=== PATIENT | female | born 1940 | race Caucasian/White ===

== ENCOUNTER 2018-10-01 10:42 | Inpatient (IN) | payer MEDICARE, MEDICAID ==
[~2018-10-01] VITALS: Ht 157.5 cm; Wt 59.4 kg
[~2018-10-01 10:42] MED LIST: AMLODIPINE PO; ASPI-1159 PO; LOSA1TAB3 PO
[2018-10-01] MEDS ORDERED: ONDANSETRON HCL 4MG/2ML INJ IV STA (11:24)
[2018-10-01] MEDS ORDERED: KETOROLAC 30MG/ML VIAL IV STA (11:24)
[2018-10-01 11:46] LABS: CHLORIDE 108 mEq/L (98-107)
[2018-10-01 11:48] LABS: INR 1.2
[2018-10-01 11:58] LABS: BASOPHILS % 0.4 % (0.0-2.0); HEMATOCRIT. 39.4 % (36.0-48.0); LYMPHOCYTES % 26.7 % (20.0-50.0); MEAN CORPUSCULAR HEMOGLOBIN 31.2 pg (28.0-32.0); MEAN CORPUSCULAR VOLUME 94.5 fL (81.0-99.0); MEAN PLATELET VOLUME 7.7 fl (7.4-10.4); MONOCYTES % 6.5 % (2.0-8.0); NEUTROPHILS % 65.4 % (40.0-76.0); PLATELET 185 x1000/uL (130-400); RED BLOOD CELL COUNT 4.17 mill/uL (4.2-5.4); RED CELL DISTRIBUTION WIDTH 14.2 % (11.6-14.6)
[2018-10-01] MEDS ORDERED: ENOXAPARIN 60MG/0.6ML SYR SUBCUT ONE (13:00)
[2018-10-01] MEDS ORDERED: DIPHENHYDRAMINE 50MG/ML VIAL IV PRN (14:30)
[2018-10-01] MEDS ORDERED: IPRATROPIUM/ALBUTEROL 0.5-3(2.5)MG/3ML NEB INH PRN (14:30)
[2018-10-01] MEDS ORDERED: MAGNESIUM/ALUMINUM HYDROXIDE/SIMETHICONE 30ML UDC PO PRN (14:30)
[2018-10-01] MEDS ORDERED: HYDROCODONE/ACETAMINOPHEN 5/325MG TABLET PO PRN (14:30)
[2018-10-01] MEDS ORDERED: ACETAMINOPHEN 325MG TABLET PO PRN (14:30)
[2018-10-01] MEDS ORDERED: CLONIDINE 0.1MG TABLET PO PRN (14:30)
[2018-10-01] MEDS ORDERED: LORAZEPAM 0.5MG TABLET PO PRN (14:30)
[2018-10-01] MEDS ORDERED: ACETAMINOPHEN 650MG SUPP PR PRN (14:30)
[2018-10-01] MEDS ORDERED: NA PHOS,M-B/NA PHOS,DI-BA ENEMA 118ML PR PRN (14:30)
[2018-10-01] MEDS ORDERED: DOCUSATE SODIUM 100MG CAPSULE PO PRN (14:30)
[2018-10-01] MEDS ORDERED: ONDANSETRON HCL 4MG/2ML INJ IV PRN (14:30)
[2018-10-01] MEDS ORDERED: GUAIFENESIN 200MG/10ML SUGAR FREE UDC PO PRN (14:30)
[2018-10-01 16:00] VITALS: BP 155/61
[2018-10-01] MEDS: DOCUSATE SODIUM 100MG CAPSULE PO SCH (16:36)
[2018-10-01] MEDS: ASPIRIN 81MG TABLET PO SCH (16:36)
[2018-10-01] MEDS: AMLODIPINE 5MG TABLET PO SCH (16:36)
[2018-10-01] MEDS ORDERED: CLON-457 PO (17:12)
[2018-10-01] MEDS ORDERED: METH500T22 MT (17:12)
[2018-10-01] MEDS ORDERED: IOHEXOL-350 100 ML BOTTLE ONE (19:00)
[2018-10-01 20:58] LABS: CREATINE KINASE MB FRACTION 1.8 ng/mL (0.5-3.6)
[2018-10-01 23:57] VITALS: BP 134/50
[2018-10-02] MEDS: ENOXAPARIN 60MG/0.6ML SYR SUBCUT SCH ×2 (01:44→12:09)
[2018-10-02 04:00] VITALS: BP 127/52
[2018-10-02 08:00] VITALS: BP 171/69
[2018-10-02 08:14] LABS: BASOPHILS % 0.7 % (0.0-2.0); EOSINOPHILS % 1.4 % (0.0-5.0); HEMATOCRIT. 38.8 % (36.0-48.0); HEMOGLOBIN. 12.7 g/dL (12.0-16.0); LYMPHOCYTES % 40.5 % (20.0-50.0); MEAN CORPUSCULAR VOLUME 94.5 fL (81.0-99.0); MONOCYTES % 7.9 % (2.0-8.0); NEUTROPHILS % 49.5 % (40.0-76.0); PLATELET 177 x1000/uL (130-400); RED BLOOD CELL COUNT 4.11 mill/uL (4.2-5.4); RED CELL DISTRIBUTION WIDTH 14.2 % (11.6-14.6)
[2018-10-02] MEDS: DOCUSATE SODIUM 100MG CAPSULE PO SCH (08:24)
[2018-10-02] MEDS: AMLODIPINE 5MG TABLET PO SCH (08:25)
[2018-10-02] MEDS: ASPIRIN 81MG TABLET PO SCH (08:25)
[2018-10-02 08:29] LABS: CHLORIDE 107 mEq/L (98-107)
[2018-10-02 08:38] LABS: LDL CHOLESTEROL 141 mg/dL (5-100)
[2018-10-02 08:39] LABS: HDL CHOLESTEROL 68 mg/dL (40-59); T4 FREE 1.05 ng/dL (0.76-1.46)
[2018-10-02 12:00] VITALS: BP 120/66
[2018-10-02 16:00] VITALS: BP 151/65
[2018-10-02] MEDS ORDERED: ATORVASTATIN CALCIUM 20MG TABLET PO SCH (21:00)
== END 2018-10-02 18:00 | disposition home or self-care (01) | DRG 301 ==
LOC: EDBEDREQ 11:41 → ER 13:17 → 7WST 13:30 → ENRESERV 13:48 → SUPCPDRO 14:20
PROVIDERS: ADMIT Internal Medicine; ATTEND Internal Medicine
DX: I82.412 Acute embolism and thrombosis of left femoral vein (principal); I10 Essential (primary) hypertension; K59.09 Other constipation; E86.0 Dehydration; R73.9 Hyperglycemia, unspecified; Z88.2 Allergy status to sulfonamides; Z79.899 Other long term (current) drug therapy; Z79.82 Long term (current) use of aspirin
CPT/HCPCS: 36415; 71045; 71275; 74018; 80061; 82550; 82553; 83036; 83605; 83880; 84439; 84443; 84484; 93005; 93306; 93970; 96372; 96374; 96375; 99285; J1650; J1885; J2405; Q9967

== ENCOUNTER 2019-07-10 10:21 | Inpatient (IN) | payer MEDICARE, MEDICAID ==
[~2019-07-10] VITALS: Ht 315 cm; Wt 56.2 kg
[~2019-07-10 10:21] MED LIST changes: -AMLODIPINE PO; -ASPI-1159 PO; +CLON-457 PO; -LOSA1TAB3 PO; +METH500T22 MT
[2019-07-10 11:36] LABS: BASOPHILS % 1.3 % (0.0-2.0); EOSINOPHILS % 0.7 % (0.0-5.0); HEMATOCRIT. 39.7 % (36.0-48.0); LYMPHOCYTES % 31.4 % (20.0-50.0); MEAN CORPUSCULAR HEMOGLOBIN 30.9 pg (28.0-32.0); MEAN PLATELET VOLUME 8.2 fl (7.4-10.4); MONOCYTES % 9.7 % (2.0-8.0); NEUTROPHILS % 56.9 % (40.0-76.0); PLATELET 198 x1000/uL (130-400); RED BLOOD CELL COUNT 4.23 mill/uL (4.2-5.4); RED CELL DISTRIBUTION WIDTH 14.3 % (11.6-14.6)
[2019-07-10 11:41] LABS: CHLORIDE 109 mEq/L (98-107)
[2019-07-10] MEDS ORDERED: ENALAPRIL 2.5MG/2ML VIAL 2ML IV ONE (11:45)
[2019-07-10 12:00] VITALS: BP 151/67
[2019-07-10] MEDS ORDERED: ENALAPRIL 1.25MG/ML VIAL 1ML IV ONE (12:00)
[2019-07-10] MEDS ORDERED: FUROSEMIDE 40MG/4ML VIAL IVP ONE (12:15)
[2019-07-10 15:33] VITALS: BP 151/67
[2019-07-10] MEDS ORDERED: LISI-604 MT (15:42)
[2019-07-10] MEDS ORDERED: METO-539 MT (15:43)
[2019-07-10] MEDS ORDERED: IPRATROPIUM/ALBUTEROL 0.5-3(2.5)MG/3ML NEB HHN PRN (16:15)
[2019-07-10] MEDS ORDERED: HYDROCODONE/ACETAMINOPHEN 5/325MG TABLET PO PRN (16:15)
[2019-07-10] MEDS ORDERED: ONDANSETRON HCL 4MG/2ML INJ IV PRN (16:15)
[2019-07-10 16:46] VITALS: BP 164/58
[2019-07-10] MEDS: HYDROCHLOROTHIAZIDE 25MG TABLET PO SCH (16:52)
[2019-07-10] MEDS: ENOXAPARIN 40MG/0.4ML SYR SUBCUT SCH (16:53)
[2019-07-10 20:26] VITALS: BP 182/56
[2019-07-10] MEDS: LISINOPRIL 20MG TABLET PO SCH ×2 (21:00→21:40)
[2019-07-10] MEDS: HYDRALAZINE HCL 50MG TABLET PO SCH (21:40)
[2019-07-11] VITALS (7 sets, daily range): BP systolic 134–196; BP diastolic 49–89
[2019-07-11 00:12] LABS: CHLORIDE 104 mEq/L (98-107)
[2019-07-11 00:21] LABS: CREATINE KINASE 103 IU/L (26-192)
[2019-07-11 00:23] LABS: CREATINE KINASE MB FRACTION 1.7 ng/mL (0.5-3.6)
[2019-07-11] MEDS ORDERED: DEXTROSE 50% WATER 50ML SYRINGE IV PRN (02:00)
[2019-07-11] MEDS: CLONIDINE 0.1MG TABLET PO PRN ×2 (06:08→13:05)
[2019-07-11] MEDS: HYDRALAZINE HCL 50MG TABLET PO SCH ×3 (06:08→21:09)
[2019-07-11] MEDS: BLOOD SUGAR DIAGNOSTIC STRIP TEST SCH ×4 (06:09→21:00)
[2019-07-11] MEDS: INSULIN LISPRO 100 UNITS/ML SUBCUT SCH ×4 (06:10→21:00)
[2019-07-11 07:03] LABS: BASOPHILS % 0.7 % (0.0-2.0); EOSINOPHILS % 2.2 % (0.0-5.0); MEAN CORPUSCULAR HEMOGLOBIN 31.2 pg (28.0-32.0); MEAN CORPUSCULAR VOLUME 93.5 fL (81.0-99.0); MEAN PLATELET VOLUME 8.2 fl (7.4-10.4); MONOCYTES % 7.9 % (2.0-8.0); NEUTROPHILS % 37.2 % (40.0-76.0); PLATELET 206 x1000/uL (130-400); RED BLOOD CELL COUNT 4.17 mill/uL (4.2-5.4); RED CELL DISTRIBUTION WIDTH 14.2 % (11.6-14.6)
[2019-07-11] MEDS: HYDROCHLOROTHIAZIDE 25MG TABLET PO SCH ×2 (08:56→13:04)
[2019-07-11 09:00] LABS: T4 FREE 1.37 ng/dL (0.76-1.46)
[2019-07-11] MEDS: LISINOPRIL 20MG TABLET PO SCH ×2 (09:04→21:09)
[2019-07-11] MEDS ORDERED: MORPHINE SULFATE 2 MG/ML CPJ (NOT FOR IM USE) IV PRN (16:45)
[2019-07-11] MEDS ORDERED: BISACODYL 10MG SUPP PR PRN (16:45)
[2019-07-11] MEDS ORDERED: DIPHENHYDRAMINE 50MG/ML VIAL IV PRN (16:45)
[2019-07-11] MEDS ORDERED: LORAZEPAM 2MG/ML CPJ IV PRN (16:45)
[2019-07-11] MEDS: ENOXAPARIN 40MG/0.4ML SYR SUBCUT SCH (16:53)
[2019-07-11] MEDS ORDERED: NITROGLYCERIN 0.4MG TABLET SL SL PRN (17:00)
[2019-07-11] MEDS: METFORMIN HCL 500MG TABLET PO SCH (18:10)
[2019-07-11] MEDS: ACETAMINOPHEN 325MG TABLET PO PRN (19:52)
[2019-07-12] VITALS: BP 142/56
[2019-07-12 04:00] VITALS: BP 147/49
[2019-07-12] MEDS: BLOOD SUGAR DIAGNOSTIC STRIP TEST SCH ×2 (05:55→12:40)
[2019-07-12] MEDS: HYDRALAZINE HCL 50MG TABLET PO SCH ×2 (06:02→14:58)
[2019-07-12] MEDS: ACETAMINOPHEN 325MG TABLET PO PRN (06:49)
[2019-07-12 06:53] LABS: HEMATOCRIT 43.3 % (36.0-48.0); HEMOGLOBIN 14.5 g/dL (12.0-16.0); MEAN CORPUSCULAR HEMOGLOBIN 31.3 pg (28.0-32.0); MEAN CORPUSCULAR VOLUME 93.2 fL (81.0-99.0); PLATELET 226 x1000/uL (130-400); RED BLOOD CELL COUNT 4.65 mill/uL (4.2-5.4); RED CELL DISTRIBUTION WIDTH 14.1 % (11.6-14.6)
[2019-07-12 06:59] LABS: INR 1.1; PROTHROMBIN TIME 11.4 sec (9.6-11.0)
[2019-07-12 07:58] LABS: CHLORIDE 103 mEq/L (98-107)
[2019-07-12 08:00] VITALS: BP 166/67
[2019-07-12] MEDS: METFORMIN HCL 500MG TABLET PO SCH (08:05)
[2019-07-12] MEDS: INSULIN LISPRO 100 UNITS/ML SUBCUT SCH ×2 (08:06→13:10)
[2019-07-12] MEDS: LISINOPRIL 20MG TABLET PO SCH (09:01)
[2019-07-12] MEDS: HYDROCHLOROTHIAZIDE 25MG TABLET PO SCH (09:01)
[2019-07-12] MEDS: HYDRALAZINE 20MG/ML VIAL IV PRN ×2 (09:07→15:49)
[2019-07-12 12:00] VITALS: BP 169/104
[2019-07-12] MEDS ORDERED: MECL-109 MT (14:01)
[2019-07-12] MEDS ORDERED: HYDR25TA MT (14:01)
[2019-07-12] MEDS ORDERED: HYDR100T26 MT (14:01)
[2019-07-12 16:00] VITALS: BP 167/78
[2019-07-12] MEDS: ENOXAPARIN 40MG/0.4ML SYR SUBCUT SCH (16:00)
[2019-07-12 17:00] VITALS: BP 167/78
== END 2019-07-12 17:36 | disposition home or self-care (01) | DRG 73 ==
LOC: ER 10:21 → 7WST 11:50 → ENRESERV 12:16
PROVIDERS: ADMIT Internal Medicine; ATTEND Internal Medicine
DX: G90.8 Other disorders of autonomic nervous system (principal); I50.33 Acute on chronic diastolic (congestive) heart failure; I16.0 Hypertensive urgency; I11.0 Hypertensive heart disease with heart failure; D72.819 Decreased white blood cell count, unspecified; E11.9 Type 2 diabetes mellitus without complications; R00.1 Bradycardia, unspecified; T44.7X5A Adverse effect of beta-adrenoreceptor antagonists, initial encounter; T46.5X5A Adverse effect of other antihypertensive drugs, initial encounter; R74.0 Nonspecific elevation of levels of transaminase and lactic acid dehydrogenase [LDH]; E78.5 Hyperlipidemia, unspecified; Z88.5 Allergy status to narcotic agent; Z86.718 Personal history of other venous thrombosis and embolism; Z79.899 Other long term (current) drug therapy; Z79.84 Long term (current) use of oral hypoglycemic drugs; Y92.89 Other specified places as the place of occurrence of the external cause
CPT/HCPCS: 36415; 71045; 76705; 80048; 80061; 80076; 82550; 82553; 83036; 83880; 84439; 84443; 84484; 85027; 93005; 93306; 93970; 99285; J0360; J1650; J1940; J3490

== ENCOUNTER 2020-07-30 15:33 | Inpatient (IN) | payer MEDICARE, MEDICAID ==
[~2020-07-30] VITALS: Ht 160 cm; Wt 59.0 kg
[~2020-07-30 15:33] MED LIST changes: -CLON-457 PO; +HYDR100T26 MT; +HYDR25TA MT; +LISI-604 MT; +MECL-159 MT; -METH500T22 MT
[2020-07-30] MEDS ORDERED: LORAZEPAM 1MG TABLET PO ONE (19:00)
[2020-07-30 19:16] LABS: EOSINOPHILS % 1.4 % (0.0-5.0); HEMOGLOBIN. 13.7 g/dL (12.0-16.0); MEAN CORPUSCULAR HEMOGLOBIN 31.3 pg (28.0-32.0); MEAN CORPUSCULAR VOLUME 93.9 fL (81.0-99.0); MEAN PLATELET VOLUME 8.3 fl (7.4-10.4); NEUTROPHILS % 55.6 % (40.0-76.0); PLATELET 180 x1000/uL (130-400); RED BLOOD CELL COUNT 4.37 mill/uL (4.2-5.4); RED CELL DISTRIBUTION WIDTH 13.4 % (11.6-14.6)
[2020-07-30 19:27] LABS: CHLORIDE 103 mEq/L (98-107)
[2020-07-30] MEDS ORDERED: ENOXAPARIN 80MG/0.8ML SYR SUBCUT ONE (20:00)
[2020-07-30] MEDS ORDERED: NITROGLYCERIN 0.4MG TABLET SL SL PRN (21:15)
[2020-07-30] MEDS ORDERED: HYDROCODONE/ACETAMINOPHEN 10/325MG TABLET PO PRN (21:15)
[2020-07-30] MEDS ORDERED: GUAIFENESIN 200MG/10ML SUGAR FREE UDC PO PRN (21:15)
[2020-07-30] MEDS ORDERED: ACETAMINOPHEN 325MG TABLET PO PRN ×2 (21:15)
[2020-07-30] MEDS ORDERED: CLONIDINE 0.1MG TABLET PO PRN (21:15)
[2020-07-30] MEDS ORDERED: IPRATROPIUM/ALBUTEROL 0.5-3(2.5)MG/3ML NEB NEB PRN (21:15)
[2020-07-30] MEDS ORDERED: MAGNESIUM/ALUMINUM HYDROXIDE/SIMETHICONE 30ML UDC PO PRN (21:15)
[2020-07-30] MEDS ORDERED: ONDANSETRON HCL 4MG/2ML INJ IV PRN (21:15)
[2020-07-30] MEDS ORDERED: DOCUSATE SODIUM 100MG CAPSULE PO PRN (21:15)
[2020-07-30] MEDS ORDERED: DEXTROSE 50% WATER 50ML SYRINGE IV PRN (21:15)
[2020-07-30] MEDS ORDERED: ZOLPIDEM TARTRATE 5MG TABLET PO PRN (21:15)
[2020-07-30] MEDS ORDERED: ENOXAPARIN 80MG/0.8ML SYR SUBCUT NR (22:00)
[2020-07-30] MEDS: METOPROLOL TARTRATE 25MG TABLET PO SCH (22:00)
[2020-07-30] MEDS: BLOOD SUGAR DIAGNOSTIC STRIP TEST SCH (22:00)
[2020-07-30] MEDS: INSULIN LISPRO 100 UNITS/ML SUBCUT SCH (22:00)
[2020-07-30] MEDS: FAMOTIDINE 20MG TABLET PO SCH (22:00)
[2020-07-30] MEDS ORDERED: IOHEXOL-350 100 ML BOTTLE ONE (23:09)
[2020-07-31] VITALS (7 sets, daily range): BP systolic 90–149; BP diastolic 51–78
[2020-07-31] MEDS: ASCORBIC ACID 500 MG TABLET PO SCH ×3 (00:46→21:04)
[2020-07-31] MEDS: HYDRALAZINE HCL 50MG TABLET PO SCH ×4 (00:46→22:00)
[2020-07-31] MEDS ORDERED: CLON0.2T MT (01:02)
[2020-07-31] MEDS: BLOOD SUGAR DIAGNOSTIC STRIP TEST SCH ×4 (06:38→21:05)
[2020-07-31 07:14] LABS: INR 1.2; PROTHROMBIN TIME 12.2 sec (9.6-11.0)
[2020-07-31 07:37] LABS: CREATINE KINASE MB FRACTION 2.2 ng/mL (0.5-3.6)
[2020-07-31] MEDS: INSULIN LISPRO 100 UNITS/ML SUBCUT SCH ×4 (07:40→21:00)
[2020-07-31] MEDS: ASPIRIN 81MG EC TABLET PO SCH (09:24)
[2020-07-31] MEDS: ENOXAPARIN 60MG/0.6ML SYR SUBCUT SCH ×2 (09:24→21:05)
[2020-07-31] MEDS: ZINC SULFATE 220 MG ( 50 ) CAPSULE PO SCH (09:24)
[2020-07-31] MEDS: METOPROLOL TARTRATE 25MG TABLET PO SCH ×2 (09:26→20:45)
[2020-07-31 11:57] LABS: CREATINE KINASE MB FRACTION 2.8 ng/mL (0.5-3.6)
[2020-07-31] MEDS: LOSARTAN POTASSIUM 100 MG TABLET PO SCH (13:30)
[2020-07-31] MEDS: FAMOTIDINE 20MG TABLET PO SCH (20:46)
[2020-08-01] VITALS (7 sets, daily range): BP systolic 111–208; BP diastolic 64–84
[2020-08-01] MEDS: HYDRALAZINE HCL 50MG TABLET PO SCH ×4 (06:00→21:24)
[2020-08-01] MEDS: BLOOD SUGAR DIAGNOSTIC STRIP TEST SCH ×4 (07:00→21:00)
[2020-08-01] MEDS: INSULIN LISPRO 100 UNITS/ML SUBCUT SCH ×4 (07:39→21:00)
[2020-08-01] MEDS: ZINC SULFATE 220 MG ( 50 ) CAPSULE PO SCH (08:00)
[2020-08-01] MEDS: ASCORBIC ACID 500 MG TABLET PO SCH ×2 (08:00→21:00)
[2020-08-01] MEDS: LOSARTAN POTASSIUM 100 MG TABLET PO SCH (08:00)
[2020-08-01] MEDS: ASPIRIN 81MG EC TABLET PO SCH (08:00)
[2020-08-01] MEDS: METOPROLOL TARTRATE 25MG TABLET PO SCH ×2 (08:01→21:00)
[2020-08-01] MEDS: ENOXAPARIN 60MG/0.6ML SYR SUBCUT SCH (08:02)
[2020-08-01 11:11] LABS: BASOPHILS % 0.5 % (0.0-2.0); EOSINOPHILS % 1.3 % (0.0-5.0); HEMATOCRIT. 41.4 % (36.0-48.0); HEMOGLOBIN. 13.7 g/dL (12.0-16.0); LYMPHOCYTES % 34.7 % (20.0-50.0); MEAN CORPUSCULAR HEMOGLOBIN 30.8 pg (28.0-32.0); MEAN CORPUSCULAR VOLUME 93.6 fL (81.0-99.0); MEAN PLATELET VOLUME 7.5 fl (7.4-10.4); MONOCYTES % 8.7 % (2.0-8.0); NEUTROPHILS % 54.8 % (40.0-76.0); PLATELET 229 x1000/uL (130-400); RED BLOOD CELL COUNT 4.43 mill/uL (4.2-5.4)
[2020-08-01 11:20] LABS: CHLORIDE 103 mEq/L (98-107)
[2020-08-01 11:28] LABS: CREATINE KINASE MB FRACTION 3.9 ng/mL (0.5-3.6)
[2020-08-01] MEDS ORDERED: APIXABAN 5 MG TABLET PO SCH (17:00)
[2020-08-01] MEDS: FAMOTIDINE 20MG TABLET PO SCH (21:00)
== END 2020-08-01 21:50 | disposition left against medical advice (07) | DRG 282 ==
LOC: ER 15:33 → 8WST 20:50 → SUPCPDRO 21:01 → ENRESERV 22:33
PROVIDERS: ADMIT Internal Medicine; ATTEND Internal Medicine
DX: I82.412 Acute embolism and thrombosis of left femoral vein (principal); I21.4 Non-ST elevation (NSTEMI) myocardial infarction; I82.432 Acute embolism and thrombosis of left popliteal vein; E11.9 Type 2 diabetes mellitus without complications; E78.5 Hyperlipidemia, unspecified; I82.512 Chronic embolism and thrombosis of left femoral vein; Z53.29 Procedure and treatment not carried out because of patient's decision for other reasons; I82.532 Chronic embolism and thrombosis of left popliteal vein; I10 Essential (primary) hypertension; Z79.899 Other long term (current) drug therapy; Z79.4 Long term (current) use of insulin; Z88.2 Allergy status to sulfonamides; Z98.891 History of uterine scar from previous surgery
CPT/HCPCS: 36415; 71045; 71275; 80048; 80053; 80061; 82550; 82553; 82962; 83036; 83880; 84484; 85025; 93005; 93306; 93970; 97162; 99285; J1650; Q9967

== ENCOUNTER 2021-11-15 14:46 | Inpatient (IN) | payer MEDICARE, MEDICAID ==
[~2021-11-15] VITALS: Ht 157.5 cm; Wt 55.3 kg
[~2021-11-15 14:46] MED LIST changes: +CLON0.2T MT; -HYDR100T26 MT; -HYDR25TA MT; -LISI-604 MT
[2021-11-15] MEDS ORDERED: CLONIDINE 0.1MG TABLET PO ONE (16:15)
[2021-11-15 16:20] LABS: CLARITY URINE CLEAR (CLEAR); COLOR URINE YELLOW (YELLOW); KETONES URINE NEGATIVE (NEGATIVE); LEUKOCYTE ESTERASE URINE NEGATIVE (NEGATIVE); NITRITE URINE NEGATIVE (NEGATIVE); OCCULT BLOOD URINE NEGATIVE (NEGATIVE); PH URINE 6.5 (4.5-8.0); PROTEIN URINE TRACE (NEGATIVE); UROBILINOGEN URINE 0.2 E.U./dL (0.2-1.0)
[2021-11-15 16:43] LABS: BASOPHILS % 0.7 % (0.0-2.0); EOSINOPHILS % 0.8 % (0.0-5.0); HEMATOCRIT. 38.3 % (36.0-48.0); HEMOGLOBIN. 12.6 g/dL (12.0-16.0); LYMPHOCYTES % 37.5 % (20.0-50.0); MEAN CORPUSCULAR HEMOGLOBIN 30.2 pg (28.0-32.0); MEAN CORPUSCULAR VOLUME 92.3 fL (81.0-99.0); MEAN PLATELET VOLUME 8.3 fl (7.4-10.4); MONOCYTES % 9.3 % (2.0-8.0); NEUTROPHILS % 51.7 % (40.0-76.0); PLATELET 237 x1000/uL (130-400); RED BLOOD CELL COUNT 4.15 mill/uL (4.2-5.4); RED CELL DISTRIBUTION WIDTH 13.8 % (11.6-14.6)
[2021-11-15 16:44] LABS: CHLORIDE 107 mEq/L (98-107)
[2021-11-16] MEDS ORDERED: HYDRALAZINE 20MG/ML VIAL IV SCH (07:50)
[2021-11-16 09:08] VITALS: BP 145/50
[2021-11-16 09:15] VITALS: BP 179/83
[2021-11-16] MEDS ORDERED: IPRATROPIUM/ALBUTEROL 0.5-3(2.5)MG/3ML NEB HHN PRN (10:45)
[2021-11-16] MEDS ORDERED: NALOXONE HCL 0.4MG/ML VIAL IV PRN (10:45)
[2021-11-16] MEDS ORDERED: ONDANSETRON HCL 4MG/2ML INJ IV PRN (10:45)
[2021-11-16 11:50] VITALS: BP 109/64
[2021-11-16] MEDS ORDERED: AMLODIPINE 5MG TABLET PO NR (12:00)
[2021-11-16] MEDS ORDERED: ENOXAPARIN 30MG/0.3ML SYR SUBCUT SCH (13:00)
[2021-11-16 13:02] LABS: CHLORIDE 103 mEq/L (98-107)
[2021-11-16] MEDS: LISINOPRIL 10MG TABLET PO SCH ×2 (13:28→20:42)
[2021-11-16] MEDS: NITROGLYCERIN OINT 1GM/INCH UDPKT TD SCH ×2 (13:36→20:42)
[2021-11-16 16:01] LABS: CREATINE KINASE MB FRACTION 3.3 ng/mL (0.5-3.6)
[2021-11-16] MEDS: HYDRALAZINE HCL 10MG TABLET PO PRN (16:19)
[2021-11-16 16:20] VITALS: BP 178/72
[2021-11-16 20:14] VITALS: BP 138/77
[2021-11-16] MEDS: ATORVASTATIN CALCIUM 10MG TABLET PO SCH (20:42)
[2021-11-16] MEDS: ACETAMINOPHEN 325MG TABLET PO PRN (20:42)
[2021-11-16] MEDS ORDERED: AMLODIPINE 5MG TABLET PO SCH (21:00)
[2021-11-17 00:03] VITALS: BP 176/71
[2021-11-17 00:04] LABS: CREATINE KINASE MB FRACTION 4.5 ng/mL (0.5-3.6)
[2021-11-17] MEDS: HYDROCODONE/ACETAMINOPHEN 5/325MG TABLET PO PRN ×4 (00:22→21:35)
[2021-11-17] MEDS: ENOXAPARIN 60MG/0.6ML SYR SUBCUT SCH ×2 (00:22→13:53)
[2021-11-17] MEDS: HYDRALAZINE HCL 10MG TABLET PO PRN ×2 (00:22→09:46)
[2021-11-17 04:07] VITALS: BP 159/81
[2021-11-17] MEDS: NITROGLYCERIN OINT 1GM/INCH UDPKT TD SCH ×3 (06:23→21:36)
[2021-11-17 08:00] VITALS: BP 188/61
[2021-11-17] MEDS: LISINOPRIL 10MG TABLET PO SCH (09:46)
[2021-11-17] MEDS: ASPIRIN 81MG EC TABLET PO SCH (09:46)
[2021-11-17] MEDS ORDERED: HYDRALAZINE 20MG/ML VIAL IV PRN (11:15)
[2021-11-17 12:00] VITALS: BP 207/93
[2021-11-17] MEDS: HYDRALAZINE HCL 50MG TABLET PO SCH ×2 (13:51→21:35)
[2021-11-17 13:59] LABS: BASOPHILS % 0.8 % (0.0-2.0); EOSINOPHILS % 0.3 % (0.0-5.0); HEMATOCRIT. 47.8 % (36.0-48.0); LYMPHOCYTES % 41.7 % (20.0-50.0); MEAN CORPUSCULAR HEMOGLOBIN 30.6 pg (28.0-32.0); MEAN CORPUSCULAR VOLUME 91.1 fL (81.0-99.0); MEAN PLATELET VOLUME 8.2 fl (7.4-10.4); MONOCYTES % 6.5 % (2.0-8.0); NEUTROPHILS % 50.7 % (40.0-76.0); PLATELET 305 x1000/uL (130-400); RED BLOOD CELL COUNT 5.25 mill/uL (4.2-5.4); RED CELL DISTRIBUTION WIDTH 13.9 % (11.6-14.6)
[2021-11-17 14:11] LABS: CHLORIDE 103 mEq/L (98-107)
[2021-11-17] MEDS: ACETAMINOPHEN 325MG TABLET PO PRN (15:14)
[2021-11-17 15:32] VITALS: BP 209/87
[2021-11-17 17:06] LABS: T4 FREE 1.28 ng/dL (0.76-1.46)
[2021-11-17 19:04] LABS: *AMPHETAMINES SCREEN URINE NEGATIVE (NEGATIVE); *BARBITURATES SCREEN URINE NEGATIVE (NEGATIVE); *BENZODIAZEPINES SCREEN URINE NEGATIVE (NEGATIVE); *COCAINE SCREEN URINE NEGATIVE (NEGATIVE)
[2021-11-17 19:05] LABS: CANNABINOID URINE SCREEN NEGATIVE (NEGATIVE); OPIATES URINE SCREEN PRESUMTIVE POSITIVE (NEGATIVE); PHENCYCLIDINE URINE SCREEN NEGATIVE (NEGATIVE)
[2021-11-17 20:00] VITALS: BP 174/74
[2021-11-17] MEDS: LISINOPRIL 20MG TABLET PO SCH (21:36)
[2021-11-17] MEDS: ATORVASTATIN CALCIUM 10MG TABLET PO SCH (21:36)
[2021-11-18] VITALS: BP 169/79
[2021-11-18] MEDS: ENOXAPARIN 60MG/0.6ML SYR SUBCUT SCH (00:41)
[2021-11-18 04:00] VITALS: BP 167/87
[2021-11-18] MEDS: NITROGLYCERIN OINT 1GM/INCH UDPKT TD SCH (06:22)
[2021-11-18] MEDS: HYDRALAZINE HCL 50MG TABLET PO SCH (06:22)
[2021-11-18 06:28] LABS: BASOPHILS % 0.4 % (0.0-2.0); HEMOGLOBIN. 14.7 g/dL (12.0-16.0); LYMPHOCYTES % 19.9 % (20.0-50.0); MEAN CORPUSCULAR VOLUME 90.9 fL (81.0-99.0); MEAN PLATELET VOLUME 8.4 fl (7.4-10.4); MONOCYTES % 7.4 % (2.0-8.0); NEUTROPHILS % 72.3 % (40.0-76.0); PLATELET 280 x1000/uL (130-400); RED BLOOD CELL COUNT 4.73 mill/uL (4.2-5.4); RED CELL DISTRIBUTION WIDTH 13.8 % (11.6-14.6)
[2021-11-18 06:42] LABS: CHLORIDE 104 mEq/L (98-107)
[2021-11-18 08:00] VITALS: BP 151/72
[2021-11-18] MEDS: LISINOPRIL 20MG TABLET PO SCH ×2 (10:09→21:53)
[2021-11-18] MEDS: ASPIRIN 81MG EC TABLET PO SCH (10:09)
[2021-11-18] MEDS ORDERED: HYDRALAZINE HCL 50MG TABLET PO SCH (10:15)
[2021-11-18] MEDS: HYDROCODONE/ACETAMINOPHEN 5/325MG TABLET PO PRN (10:18)
[2021-11-18 11:31] LABS: CHLORIDE 102 mEq/L (98-107)
[2021-11-18 12:00] VITALS: BP 166/76
[2021-11-18] MEDS: HYDRALAZINE HCL 100MG TABLET PO SCH ×2 (13:27→21:53)
[2021-11-18] MEDS ORDERED: ATOR10TA MT (13:39)
[2021-11-18] MEDS ORDERED: LISI20TA31 MT (13:39)
[2021-11-18] MEDS ORDERED: HYDR100T26 MT (13:39)
[2021-11-18] MEDS ORDERED: XAR15 MT (13:39)
[2021-11-18] MEDS ORDERED: ISOS20TA57 PO ×2 (13:39)
[2021-11-18 16:00] VITALS: BP 170/88
[2021-11-18] MEDS: RIVAROXABAN 15 MG TABLET PO SCH (17:44)
[2021-11-18] MEDS ORDERED: DILTIAZEM HCL 30MG TABLET PO NR (17:45)
[2021-11-18 20:00] VITALS: BP 169/58
[2021-11-18] MEDS: ATORVASTATIN CALCIUM 10MG TABLET PO SCH (21:53)
[2021-11-18] MEDS: ISOSORBIDE MONONITRATE 60MG TABLET SR 24HR PO SCH (21:53)
[2021-11-19] VITALS (11 sets, daily range): BP systolic 122–157; BP diastolic 42–86
[2021-11-19] MEDS: HYDRALAZINE HCL 100MG TABLET PO SCH (06:29)
[2021-11-19] MEDS: LISINOPRIL 20MG TABLET PO SCH ×2 (08:57→20:52)
[2021-11-19] MEDS: ISOSORBIDE MONONITRATE 60MG TABLET SR 24HR PO SCH (08:57)
[2021-11-19] MEDS ORDERED: DEXTROSE 50% WATER 50ML SYRINGE IV PRN (10:00)
[2021-11-19] MEDS ORDERED: DILTIAZEM HCL 5MG/ML 5ML VIAL IV NR (10:15)
[2021-11-19] MEDS ORDERED: LORAZEPAM 1MG TABLET PO NR (10:30)
[2021-11-19] MEDS ORDERED: LIDOCAINE HCL 1% 10 MG/ML 10ML VIAL ONE (12:40)
[2021-11-19] MEDS ORDERED: LORAZEPAM 2MG/ML CPJ IV PRN (12:45)
[2021-11-19] MEDS: DILTIAZEM HCL 60MG TABLET PO SCH ×2 (12:52→17:33)
[2021-11-19] MEDS: BLOOD SUGAR DIAGNOSTIC STRIP TEST SCH ×3 (12:56→20:52)
[2021-11-19] MEDS: DILTIAZEM HCL 125 MG in DEXT 5% WATER 100 ML IV SCH ×2 (13:02→13:04)
[2021-11-19] MEDS: INSULIN LISPRO 100 UNITS/ML SUBCUT SCH ×3 (13:08→20:58)
[2021-11-19 13:16] LABS: BASOPHILS % 0.5 % (0.0-2.0); EOSINOPHILS % 0.1 % (0.0-5.0); HEMATOCRIT. 40.8 % (36.0-48.0); HEMOGLOBIN. 13.5 g/dL (12.0-16.0); MEAN CORPUSCULAR HEMOGLOBIN 30.1 pg (28.0-32.0); MEAN CORPUSCULAR VOLUME 90.9 fL (81.0-99.0); MEAN PLATELET VOLUME 8.3 fl (7.4-10.4); MONOCYTES % 6.5 % (2.0-8.0); NEUTROPHILS % 72.9 % (40.0-76.0); PLATELET 261 x1000/uL (130-400); RED BLOOD CELL COUNT 4.49 mill/uL (4.2-5.4); RED CELL DISTRIBUTION WIDTH 14.1 % (11.6-14.6)
[2021-11-19 13:25] LABS: CHLORIDE 116 mEq/L (98-107)
[2021-11-19] MEDS ORDERED: POTASSIUM CHLORIDE 20MEQ/PACKET PO NR (14:30)
[2021-11-19] MEDS: RIVAROXABAN 15 MG TABLET PO SCH (17:33)
[2021-11-19 17:52] LABS: INR 1.2
[2021-11-19] MEDS: ATORVASTATIN CALCIUM 10MG TABLET PO SCH (20:51)
[2021-11-20] VITALS (19 sets, daily range): BP systolic 111–166; BP diastolic 44–124
[2021-11-20] MEDS: DILTIAZEM HCL 125 MG in DEXT 5% WATER 100 ML IV SCH ×2 (03:22→17:24)
[2021-11-20] MEDS: DILTIAZEM HCL 60MG TABLET PO SCH ×3 (06:16→12:34)
[2021-11-20 06:52] LABS: BASOPHILS % 0.1 % (0.0-2.0); EOSINOPHILS % 0.4 % (0.0-5.0); HEMATOCRIT. 39.4 % (36.0-48.0); HEMOGLOBIN. 13.2 g/dL (12.0-16.0); LYMPHOCYTES % 33.2 % (20.0-50.0); MEAN CORPUSCULAR HEMOGLOBIN 30.7 pg (28.0-32.0); MEAN CORPUSCULAR VOLUME 91.6 fL (81.0-99.0); MEAN PLATELET VOLUME 8.5 fl (7.4-10.4); MONOCYTES % 10.1 % (2.0-8.0); NEUTROPHILS % 56.2 % (40.0-76.0); PLATELET 250 x1000/uL (130-400); RED CELL DISTRIBUTION WIDTH 14.2 % (11.6-14.6)
[2021-11-20] MEDS: BLOOD SUGAR DIAGNOSTIC STRIP TEST SCH ×4 (07:30→21:00)
[2021-11-20] MEDS: INSULIN LISPRO 100 UNITS/ML SUBCUT SCH ×4 (08:44→22:26)
[2021-11-20] MEDS: LISINOPRIL 20MG TABLET PO SCH ×2 (10:00→21:04)
[2021-11-20] MEDS ORDERED: DILTIAZEM HCL 125 MG in DEXT 5% WATER 100 ML IV SCH (10:08)
[2021-11-20 13:00] LABS: METHADONE URINE SCREEN NEGATIVE (NEGATIVE)
[2021-11-20 13:32] LABS: BG BASE EXCESS 2.3 mmol/L (-2.0-2.0); BG DEOXYHEMOGLOBIN 2.3 % (0.0-5.0); BG HCO3 ACT 24.9 mmol/L (22.0-26.0); BG METHEMOGLOBIN 0.2 % (0.0-1.5); BG OXYGEN SATURATION 97.7 % (92.0-98.5); BG OXYHEMOGLOBIN 96.5 % (94.0-97.0); BG PCO2 32.8 mmHg (35.0-45.0); BG PH 7.498 (7.350-7.450); BG PO2 87.7 mmHg (75.0-100.0); BG SAMPLE SITE RIGHT BRACHIAL; BG TOTAL HEMOGLOBIN 14.2 g/dL (12.0-18.0); BG VENT MODE ROOM AIR
[2021-11-20] MEDS ORDERED: DILTIAZEM HCL 90MG TABLET PO SCH (14:00)
[2021-11-20] MEDS: SOTALOL HCL 80MG TABLET PO SCH ×2 (14:21→21:04)
[2021-11-20] MEDS: RIVAROXABAN 15 MG TABLET PO SCH (17:19)
[2021-11-20] MEDS: ATORVASTATIN CALCIUM 10MG TABLET PO SCH (21:04)
[2021-11-21] VITALS (7 sets, daily range): BP systolic 100–199; BP diastolic 50–88
[2021-11-21 05:49] LABS: CHLORIDE 107 mEq/L (98-107)
[2021-11-21 05:50] LABS: BASOPHILS % 0.4 % (0.0-2.0); EOSINOPHILS % 1.2 % (0.0-5.0); HEMATOCRIT. 43.9 % (36.0-48.0); HEMOGLOBIN. 14.4 g/dL (12.0-16.0); LYMPHOCYTES % 39.4 % (20.0-50.0); MEAN CORPUSCULAR HEMOGLOBIN 30.3 pg (28.0-32.0); MEAN CORPUSCULAR VOLUME 92.1 fL (81.0-99.0); MEAN PLATELET VOLUME 8.5 fl (7.4-10.4); MONOCYTES % 10.2 % (2.0-8.0); NEUTROPHILS % 48.8 % (40.0-76.0); PLATELET 255 x1000/uL (130-400); RED BLOOD CELL COUNT 4.77 mill/uL (4.2-5.4); RED CELL DISTRIBUTION WIDTH 14.5 % (11.6-14.6)
[2021-11-21] MEDS: DILTIAZEM HCL 125 MG in DEXT 5% WATER 100 ML IV SCH (06:54)
[2021-11-21] MEDS: BLOOD SUGAR DIAGNOSTIC STRIP TEST SCH ×4 (08:24→17:30)
[2021-11-21] MEDS: SOTALOL HCL 80MG TABLET PO SCH (08:25)
[2021-11-21] MEDS: LISINOPRIL 20MG TABLET PO SCH (08:25)
[2021-11-21] MEDS: INSULIN LISPRO 100 UNITS/ML SUBCUT SCH ×3 (08:26→18:00)
[2021-11-21] MEDS ORDERED: DILT60TA41 MT (12:19)
[2021-11-21] MEDS ORDERED: SOTA80TA25 PO (12:19)
[2021-11-21] MEDS ORDERED: DILTIAZEM HCL 60MG TABLET PO SCH (14:00)
[2021-11-21] MEDS ORDERED: IOHEXOL-350 100 ML BOTTLE ONE (15:21)
[2021-11-21] MEDS: RIVAROXABAN 15 MG TABLET PO SCH (17:00)
[2021-11-21] MEDS ORDERED: SOTALOL HCL 80MG TABLET PO SCH (21:00)
== END 2021-11-21 23:01 | disposition left against medical advice (07) | DRG 281 ==
LOC: ER 14:46 → MICUSO 18:41 → 6WST 11-16 08:58 → 5EST 11-19 12:47
PROVIDERS: ADMIT Internal Medicine; ATTEND Internal Medicine
DX: I21.4 Non-ST elevation (NSTEMI) myocardial infarction (principal); I47.1 Supraventricular tachycardia; I31.3 Pericardial effusion (noninflammatory); I48.4 Atypical atrial flutter; I16.0 Hypertensive urgency; E78.5 Hyperlipidemia, unspecified; E11.65 Type 2 diabetes mellitus with hyperglycemia; F41.9 Anxiety disorder, unspecified; E78.00 Pure hypercholesterolemia, unspecified; I49.5 Sick sinus syndrome; I48.91 Unspecified atrial fibrillation; Z78.0 Asymptomatic menopausal state; Z79.01 Long term (current) use of anticoagulants; Z79.899 Other long term (current) drug therapy; Z86.718 Personal history of other venous thrombosis and embolism; Z88.8 Allergy status to other drugs, medicaments and biological substances; Z88.2 Allergy status to sulfonamides; I11.9 Hypertensive heart disease without heart failure
CPT/HCPCS: 36415; 36600; 71045; 71275; 76770; 80048; 80053; 80061; 80305; 81003; 82310; 82375; 82550; 82553; 82805; 82962; 83036; 83735; 83880; 84439; 84443; 84484; 85025; 87426; 93005; 93306; 93970; 93976; 99285; C1893; J0360; J1650; J1815; J2405; J3490; J7060; Q9967